=== PATIENT | female | born 1960 | race Caucasian/White ===

== ENCOUNTER 2018-01-28 14:04 | Inpatient (IN) | payer BC, OTHER ==
[2018-01-28] MEDS ORDERED: PIPERACILLIN/TAZOBACTAM 4.5 GM VIAL IV ONE (14:32)
[2018-01-28] MEDS ORDERED: VANCOMYCIN HCL INJ 1000 MG VIAL IV ONE (14:32)
[2018-01-28] MEDS ORDERED: NORMAL SALINE 1000 ML 1,000 ML IV ONE (14:32)
--- NOTE | 2018-01-28 14:35 | ER Document Report ---
ED Medical Screen (RME) - General Chief Complaint: Leg Swelling Stated Complaint: LEG SWELLING Time Seen by Provider: 01/28/18 14:31 Mode of Arrival: Ambulatory Information source: Patient Notes: Patient says she was bitten by an ant on Monday. Then on she started noticing redness on her right lower leg. The redness aspirated to her right upper leg below the knee. Patient is also says she has been having fever. She denies any history of diabetes. Leg is swollen and erythematous consistent with cellulitis. I have greeted and performed a rapid initial assessment of this patient. A comprehensive ED assessment and evaluation of the patient, analysis of test results and completion of the medical decision making process will be conducted by additional ED providers. TRAVEL OUTSIDE OF THE [place] IN LAST 30 DAYS: No - Related Data Allergies/Adverse Reactions: No Known Allergies Allergy (Unverified 07/08/11 21:17) Physical Exam - Vital signs Vitals: Temp Pulse Resp BP Pulse Ox 98.1 F 88 16 156/91 H 96 01/28/18 14:10 01/28/18 14:10 01/28/18 14:10 01/28/18 14:10 01/28/18 14:10 Course - Vital Signs Vital signs: Temp Pulse Resp BP Pulse Ox 98.1 F 88 16 156/91 H 96 01/28/18 14:10 01/28/18 14:10 01/28/18 14:10 01/28/18 14:10 01/28/18 14:10 Doctor's Discharge - Discharge Referrals: LOCAL,NO [Primary Care Provider] - Follow up as needed
[2018-01-28] MEDS ORDERED: PIPERACILLIN SODIUM/TAZOBACTAM 4.5 GM in NORMAL SALINE 100 ML IV ONE (15:15)
[2018-01-28 15:44] LABS: ABSOLUTE BASOPHILS # (AUTO) 0.1 10^3/uL (0.0-0.2); ABSOLUTE EOSINOPHILS # (AUTO) 0.2 10^3/uL (0.0-0.6); ABSOLUTE LYMPHOCYTES (AUTO) 2.6 10^3/uL (0.5-4.7); ABSOLUTE MONOCYTES (AUTO) 0.8 10^3/uL (0.1-1.4); ABSOLUTE NEUT (AUTO) 11.7 10^3/uL (1.7-8.2); BASOPHILS % (AUTO) 0.5 % (0-2); EOSINOPHILS % (AUTO) 1.4 % (0-6); HEMATOCRIT 43.3 % (36.0-47.0); HEMOGLOBIN 14.7 g/dL (12.0-15.5); LYMPHOCYTES % (AUTO) 16.7 % (13-45); MEAN CORPUSCULAR HEMOGLOBIN 28.5 pg (27.0-33.4); MEAN CORPUSCULAR HGB CONC 33.9 g/dL (32.0-36.0); MEAN CORPUSCULAR VOLUME 84 fl (80-97); MONOCYTES % (AUTO) 5.3 % (3-13); PLATELET COUNT 215 10^3/uL (150-450); RED BLOOD COUNT 5.14 10^6/uL (3.72-5.28); RED CELL DISTRIBUTION WIDTH 14.6 % (11.5-14.0); SEGMENTED NEUTROPHILS % (AUTO) 76.1 % (42-78); TOTAL CELLS COUNTED % (AUTO) 100 %; WHITE BLOOD COUNT 15.3 10^3/uL (4.0-10.5)
[2018-01-28 15:50] LABS: APPEARANCE,URINE SLIGHTLY-CLOUDY; BILIRUBIN,URINE NEGATIVE (NEGATIVE); COLOR,URINE YELLOW; GLUCOSE, URINE NEGATIVE (NEGATIVE); KETONES,URINE NEGATIVE (NEGATIVE); LEUKOCYTE ESTERASE,URINE LARGE (NEGATIVE); NITRITE,URINE POSITIVE (NEGATIVE); PROTEIN,URINE 30 mg/dL (NEGATIVE); URINE SPECIFIC GRAVITY 1.021
[2018-01-28 15:51] LABS: INTERNATIONAL RATION (INR) 1.07; PROTHROMBIN TIME 14.5 SEC (11.4-15.4)
[2018-01-28 16:02] LABS: ALANINE AMINOTRANSFERASE 20 U/L (9-52); ALBUMIN 4.4 g/dL (3.5-5.0); ALKALINE PHOSPHATASE 102 U/L (38-126); ANION GAP 8 (5-19); ASPARTATE AMINO TRANSFERASE 25 U/L (14-36); BILIRUBIN,DIRECT 0.7 mg/dL (0.0-0.4); BLOOD UREA NITROGEN 14 mg/dL (7-20); CALCIUM 10.2 mg/dL (8.4-10.2); CARBON DIOXIDE 33 mmol/L (22-30); CHLORIDE 98 mmol/L (98-107); GLUCOSE 143 mg/dL (75-110); POTASSIUM 3.7 mmol/L (3.6-5.0); SODIUM 139.2 mmol/L (137-145); TOTAL PROTEIN 9.4 g/dL (6.3-8.2)
--- NOTE | 2018-01-28 16:44 | RADIOLOGY REPORT (SQ) ---
EXAM DESCRIPTION: CHEST SINGLE VIEW COMPLETED DATE/TIME: 01/28/2018 4:29 pm REASON FOR STUDY: fever COMPARISON: None. EXAM PARAMETERS: NUMBER OF VIEWS: One view. TECHNIQUE: Single frontal radiographic view of the chest acquired. RADIATION DOSE: NA LIMITATIONS: None. FINDINGS: LUNGS AND PLEURA: No opacities, masses or pneumothorax. No pleural effusion. MEDIASTINUM AND HILAR STRUCTURES: No masses. Contour normal. HEART AND VASCULAR STRUCTURES: Heart normal in size. Normal vasculature. BONES: No acute findings. HARDWARE: None in the chest. OTHER: No other significant finding. IMPRESSION: NO ACUTE RADIOGRAPHIC FINDING IN THE CHEST. TECHNICAL DOCUMENTATION: JOB ID: [id number] [employer]- All Rights Reserved Reading location - IP/workstation name: [email or web address]
[2018-01-28] MEDS ORDERED: VANCOMYCIN HCL INJ 1000 MG VIAL ONE (22:37)
[2018-01-29 00:20] LABS: VENOUS BLOOD BASE EXCESS 0.6 mmol/L; VENOUS BLOOD HCO3 26.6 mmol/L (20-32); VENOUS BLOOD PCO2 47.7 mmHg (35-63); VENOUS BLOOD PH 7.36 (7.30-7.42)
[2018-01-29] MEDS ORDERED: PIPERACILLIN/TAZOBACTAM 3.375 GM VIAL IV ONE (00:52)
[2018-01-29] MEDS ORDERED: PIPERACILLIN SODIUM/TAZOBACTAM 3.375 GM in NORMAL SALINE 100 ML IV ONE (01:30)
--- NOTE | 2018-01-29 03:02 | ER Document Report ---
ED General - General Chief Complaint: Leg Swelling Stated Complaint: LEG SWELLING Time Seen by Provider: 01/28/18 14:31 Mode of Arrival: Ambulatory Notes: Patient is a pleasant 57-year-old female without history of diabetes who presents with severe leg swelling on the right leg with erythema. She says started several days ago however because of her canes been unable to make that hospital. Redness has not spread from the foot all the way up the leg to the knee. Is circumferential. No fevers. No vomiting. No chest pain or shortness of breath. She does not remember any actual lacerations to the leg. No other complaints at this time. TRAVEL OUTSIDE OF THE [place] IN LAST 30 DAYS: No - Related Data Allergies/Adverse Reactions: No Known Allergies Allergy (Unverified 07/08/11 21:17) Past Medical History - General Information source: Patient - Social History Smoking Status: Never Smoker Chew tobacco use (# tins/day): No Frequency of alcohol use: None Drug Abuse: None Family History: Reviewed & Not Pertinent Patient has suicidal ideation: No Patient has homicidal ideation: No Renal/ Medical History: Denies: Hx Peritoneal Dialysis Review of Systems - Review of Systems Notes: My Normal Review Basic REVIEW OF SYSTEMS: CONSTITUTIONAL : Denies fever, chills, or sweats. Denies recent illness. RESPIRATORY: Denies cough, cold, or chest congestion. Denies shortness of breath, difficulty breathing, or wheezing. GASTROINTESTINAL: Denies abdominal pain. Denies nausea, vomiting, or diarrhea. MUSCULOSKELETAL: Right lower extremity redness and swelling. SKIN: Denies rash or skin lesions. NEUROLOGICAL: Denies sensory or motor loss. ALL OTHER SYSTEMS REVIEWED AND NEGATIVE. Physical Exam - Vital signs Vitals: Temp Pulse Resp BP Pulse Ox 98.1 F 88 16 156/91 H 96 01/28/18 14:10 01/28/18 14:10 01/28/18 14:10 01/28/18 14:10 01/28/18 14:10 - Notes Notes: General Appearance: Well nourished, alert, cooperative, no acute distress, no obvious discomfort. Vitals: reviewed, See vital signs table. Eyes: PERRL, EOMI, Conjuctiva clear Lungs: No wheezing, No rales, No rhonci, No accessory muscle use, good air exchange bilaterally. Heart: Normal rate, Regular rythm, No murmur, no rub Abdomen: Normal BS, soft, No rigidity, No abdominal tenderness, No guarding, no rebound, no abdominal masses, no organomegaly Extremities: strength 5/5 in all extremities, good pulses in all extremities, swollen right lower extremity with deep erythema and warmth extends from foot to just below the knee. This has been outlined with a marking pen by the triage physician. No crepitance to palpation. Leg is actually mildly tender to palpation. Is not severely tender. Skin: warm, dry, appropriate color, no rash Neuro: speech clear, oriented x 3, normal affect, responds appropriately to questions. Course - Re-evaluation Re-evalutation: 01/29/18 09:[address] scan did not show any evidence of abscess. Patient's redness is actually starting streak up the inside of the right thigh consistent with lymphangitis. She has received Zosyn and vancomycin. I did speak with the hospitalist, Dr. Jeong, who agrees to admit the patient. Dictation of this chart was performed using voice recognition software; therefore, there may be some unintended grammatical errors. - Vital Signs Vital signs: Temp Pulse Resp BP Pulse Ox 99.4 F 83 16 150/83 H 98 01/29/18 02:21 01/29/18 08:00 01/29/18 08:00 01/29/18 02:21 01/29/18 08:00 - Laboratory Result Diagrams: 01/28/18 15:20 01/28/18 15:20 Laboratory results interpreted by me: 01/28/18 01/28/18 01/28/18 15:20 15:20 15:20 WBC 15.3 H RDW 14.6 H Absolute Neutrophils 11.7 H Carbon Dioxide 33 H Glucose 143 H Direct Bilirubin 0.7 H Total Protein 9.4 H Urine Protein 30 H Urine Blood SMALL H Urine Nitrite POSITIVE H Urine Urobilinogen 2.0 H Ur Leukocyte Esterase LARGE H Urine Ascorbic Acid 20 H Discharge - Discharge Clinical Impression: Cellulitis Qualifiers: Site of cellulitis: extremity Site of cellulitis of extremity: lower extremity Laterality: right Qualified Code(s): L03.115 - Cellulitis of right lower limb Condition: Good Disposition: ADMITTED INPATIENT Admitting Provider: Hospitalist Unit Admitted: Medical Floor
[2018-01-29] MEDS ORDERED: MAG HYDROX/AL HYDROX/SIMETH SUSP 30 ML UDCUP PO PRN (04:18)
[2018-01-29] MEDS ORDERED: IPRATROPIUM/ALBUTEROL 0.5-2.5 MG/3 ML AMPUL NEB PRN (04:18)
[2018-01-29] MEDS ORDERED: MAGNESIUM HYDROXIDE SUSP 30 ML UDCUP PO PRN (04:18)
[2018-01-29] MEDS ORDERED: NORMAL SALINE 1000 ML 1,000 ML IV SCH (04:30)
[2018-01-29] MEDS ORDERED: VANCOMYCIN HCL 0 MG in DEXTROSE 5%-WATER 250 ML IV NR (04:30)
--- NOTE | 2018-01-29 06:37 | PDOC H&P ---
History of Present Illness Admission Date/PCP: 01/29/18 03:14 Patient complains of: Left leg pain and swelling History of Present Illness: RODRICK BURGESS is a 57 year old female without significant past medical history who presents following 3 days of erythema and pain to her left leg. She admits fever chills intermittently improved with Tylenol. In the emergency room she is found to have marketed swelling, circumferential erythema and pain, leukocytosis and fever. She denies previous history, recent antibiotics, trauma or injury. She does have extensive hyperkeratotic lesions to the plantar surface of her feet with deep fissuring. She is started on empiric antibiotics and referred to the hospitalist for admission Past Medical History Medical History: None Skin Medical History: Reports: Other - Tinea pedis Past Surgical History Past Surgical History: Reports: None Social History Information Source: Patient Lives with: Spouse/Significant other Smoking Status: Never Smoker Frequency of Alcohol Use: None Drugs: None - Advance Directive Resuscitation Status: Full Code Family History Family History: None Parental Family History Reviewed: Yes Children Family History Reviewed: Yes Sibling(s) Family History Reviewed.: Yes Medication/Allergy Home Medications: No Home Medications 07/08/11 Allergies/Adverse Reactions: No Known Allergies Allergy (Unverified 07/08/11 21:17) Review of Systems Constitutional: ABSENT: chills, fever(s), headache(s), weight gain, weight loss Eyes: ABSENT: visual disturbances Ears: ABSENT: hearing changes Cardiovascular: ABSENT: chest pain, dyspnea on exertion, edema, orthropnea, palpitations Respiratory: ABSENT: cough, hemoptysis Gastrointestinal: ABSENT: abdominal pain, constipation, diarrhea, hematemesis, hematochezia, nausea, vomiting Genitourinary: ABSENT: dysuria, hematuria Musculoskeletal: ABSENT: joint swelling Integumentary: ABSENT: rash, wounds Neurological: ABSENT: abnormal gait, abnormal speech, confusion, dizziness, focal weakness, syncope Psychiatric: ABSENT: anxiety, depression, homidical ideation, suicidal ideation Endocrine: ABSENT: cold intolerance, heat intolerance, polydipsia, polyuria Hematologic/Lymphatic: ABSENT: easy bleeding, easy bruising Physical Exam Vital Signs: Temp Pulse Resp BP Pulse Ox 99.4 F 83 17 150/83 H 97 01/29/18 02:21 01/29/18 02:21 01/29/18 02:21 01/29/18 02:21 01/29/18 02:21 General appearance: PRESENT: cooperative, mild distress, well-developed, well- nourished Head exam: PRESENT: atraumatic, normocephalic Eye exam: PRESENT: conjunctiva pink, EOMI, PERRLA. ABSENT: scleral icterus Ear exam: PRESENT: normal external ear exam Mouth exam: PRESENT: moist, tongue midline Neck exam: ABSENT: carotid bruit, JVD, lymphadenopathy, thyromegaly Respiratory exam: PRESENT: clear to auscultation estelle. ABSENT: rales, rhonchi, wheezes Cardiovascular exam: PRESENT: RRR. ABSENT: diastolic murmur, rubs, systolic murmur Pulses: PRESENT: normal dorsalis pedis pul Vascular exam: PRESENT: normal capillary refill GI/Abdominal exam: PRESENT: normal bowel sounds, soft. ABSENT: distended, guarding, mass, organolmegaly, rebound, tenderness Rectal exam: PRESENT: deferred Extremities exam: PRESENT: full ROM, pedal edema, tenderness, +1 edema, other - Hyperkeratotic feet bilaterally with deep fissuring. ABSENT: calf tenderness, clubbing Neurological exam: PRESENT: alert, awake, oriented to person, oriented to place , oriented to time, oriented to situation, CN II-XII grossly intact. ABSENT: motor sensory deficit Psychiatric exam: PRESENT: appropriate affect, normal mood. ABSENT: homicidal ideation, suicidal ideation Skin exam: PRESENT: dry, intact, warm, other - Hyperkeratotic feet bilaterally with deep fissuring. ABSENT: cyanosis, rash Adult Front & Back Image: 1 - Circumferential erythema, hyperkeratotic feet bilaterally with deep fissuring Results Impressions: Chest X-Ray 01/28/18 14:33 IMPRESSION: NO ACUTE RADIOGRAPHIC FINDING IN THE CHEST. Assessment & Plan - Diagnosis (1) Left leg cellulitis Is this a current diagnosis for this admission?: Yes Plan: Complicated by tinea pedis, admit to medical floor, cellulitis care set, risk for MRSA empiric vancomycin and Zosyn. Follow-up CBC and blood culture (2) Tinea pedis Is this a current diagnosis for this admission?: Yes Plan: Source for #1, terbinafine ordered. Consider podiatry referral - Time Time Spent: 30 to 50 Minutes - Inpatient Certification Medical Necessity: Need Close Monitoring Due to Risk of Patient Decompensation
[2018-01-29] MEDS ORDERED: NORMAL SALINE 1000 ML 1,000 ML IV PRN (07:07)
[2018-01-29] MEDS: HEPARIN SOD (PORCINE) 5,000 UNIT/ML 1 ML SYRINGE SUBCUT SCH ×3 (07:08→21:44)
[2018-01-29] MEDS: ACETAMINOPHEN 325 MG TABLET PO PRN ×2 (07:08→21:52)
--- NOTE | 2018-01-29 07:47 | RADIOLOGY REPORT (SQ) ---
CT LOWER EXTREMITY WITH IV CONTRAST HISTORY: Right leg swelling and infection. COMPARISON: None. TECHNIQUE: CT scan of the right lower extremity. This exam was performed according to our departmental dose-optimization program, which includes automated exposure control, adjustment of the mA and/or kV according to patient size and/or use of iterative reconstruction technique. FINDINGS: No acute fracture or dislocation. Joint spaces are grossly preserved. Calcaneal spurring is present. Subcutaneous edema of the right lower extremity extending to the superficial fascia. Visualized muscles and tendons are grossly intact. No focal fluid collection is identified. No ankle joint effusion. No radiopaque foreign body. IMPRESSION: Diffuse subcutaneous edema of the right lower extremity which may represent cellulitis. No evidence of abscess or phlegmon. No acute osseous findings.
[2018-01-29] MEDS: PIPERACILLIN SODIUM/TAZOBACTAM 4.5 GM in NORMAL SALINE 100 ML IV SCH ×3 (09:37→22:26)
[2018-01-29] MEDS: TERBINAFINE HCL 250 MG TABLET PO SCH (10:29)
[2018-01-29] MEDS: DOCUSATE SODIUM 100 MG CAPSULE PO SCH ×2 (10:29→18:14)
[2018-01-29] MEDS: VANCOMYCIN HCL 750 MG in DEXTROSE 5%-WATER 250 ML IV SCH ×2 (10:33→22:27)
[2018-01-29] MEDS: HYDRALAZINE HCL INJ/PF 20 MG/1 ML SDV IV PRN (12:45)
--- NOTE | 2018-01-29 13:36 | RADIOLOGY REPORT (SQ) ---
EXAM DESCRIPTION: VENOUS UNILATERAL LOWER COMPLETED DATE/TIME: 01/29/2018 1:24 pm REASON FOR STUDY: Right leg swelling COMPARISON: None. TECHNIQUE: Dynamic and static tariq scale and color images acquired of the right leg venous system. S elected spectral images acquired with additional compression and augmentation maneuvers. The contrala teral common femoral vein and saphenofemoral junction were also imaged. Images stored on PACS. LIMITATIONS: None. FINDINGS: COMMON FEMORAL: Normal phasicity, compression and augmentation. No visualized echogenic ma terial on tariq scale. No defects on color images. FEMORAL: Normal compression and augmentation. No visualized echogenic material on tariq scale. No defe cts on color images. POPLITEAL: Normal compression, augmentation. No visualized echogenic material on tariq scale. No defec ts on color images. CALF VESSELS: Normal compression, augmentation. No visualized echogenic material on tariq scale. No de fects on color images. GSV and SSV: Normal compression, augmentation. No visualized echogenic material on tariq scale. No def ects on color images. ANY DEEP VENOUS INSUFFICIENCY: Not evaluated. ANY EVIDENCE OF POPLITEAL CYST: No. OTHER: No other significant finding. CONTRALATERAL COMMON FEMORAL VEIN AND SAPHENOFEMORAL JUNCTION: Normal phasicity, compression and augmentation. No visualized echogenic material on tariq scale. No de fects on color images. IMPRESSION: NO EVIDENCE OF DVT OR SVT IN THE RIGHT LEG. TECHNICAL DOCUMENTATION: JOB ID: [id number] [employer]- All Rights Reserved Reading location - IP/workstation name: [email or web address]
[2018-01-29] MEDS: KETOROLAC TROMETHAMINE INJ/PF 30 MG/1 ML SDV IV PRN (15:25)
[2018-01-29] MEDS ORDERED: DIPHENHYDRAMINE HCL 50 MG CAPSULE PO PRN (21:00)
[2018-01-30] MEDS: PIPERACILLIN SODIUM/TAZOBACTAM 4.5 GM in NORMAL SALINE 100 ML IV SCH ×5 (02:54→21:07)
[2018-01-30] MEDS: HEPARIN SOD (PORCINE) 5,000 UNIT/ML 1 ML SYRINGE SUBCUT SCH ×3 (06:06→21:44)
[2018-01-30 06:40] LABS: ABSOLUTE BASOPHILS # (AUTO) 0.1 10^3/uL (0.0-0.2); ABSOLUTE EOSINOPHILS # (AUTO) 0.3 10^3/uL (0.0-0.6); ABSOLUTE LYMPHOCYTES (AUTO) 2.6 10^3/uL (0.5-4.7); ABSOLUTE MONOCYTES (AUTO) 0.8 10^3/uL (0.1-1.4); ABSOLUTE NEUT (AUTO) 7.3 10^3/uL (1.7-8.2); BASOPHILS % (AUTO) 0.5 % (0-2); EOSINOPHILS % (AUTO) 2.9 % (0-6); HEMATOCRIT 37.6 % (36.0-47.0); HEMOGLOBIN 12.7 g/dL (12.0-15.5); LYMPHOCYTES % (AUTO) 23.8 % (13-45); MEAN CORPUSCULAR HEMOGLOBIN 28.1 pg (27.0-33.4); MEAN CORPUSCULAR HGB CONC 33.7 g/dL (32.0-36.0); MEAN CORPUSCULAR VOLUME 83 fl (80-97); MONOCYTES % (AUTO) 6.9 % (3-13); PLATELET COUNT 197 10^3/uL (150-450); RED BLOOD COUNT 4.51 10^6/uL (3.72-5.28); RED CELL DISTRIBUTION WIDTH 14.6 % (11.5-14.0); SEGMENTED NEUTROPHILS % (AUTO) 65.9 % (42-78); TOTAL CELLS COUNTED % (AUTO) 100 %; WHITE BLOOD COUNT 11.1 10^3/uL (4.0-10.5)
[2018-01-30 06:56] LABS: ANION GAP 8 (5-19); BLOOD UREA NITROGEN 11 mg/dL (7-20); CALCIUM 9.4 mg/dL (8.4-10.2); CARBON DIOXIDE 27 mmol/L (22-30); CHLORIDE 107 mmol/L (98-107); GLUCOSE 112 mg/dL (75-110); POTASSIUM 3.5 mmol/L (3.6-5.0); SODIUM 141.8 mmol/L (137-145)
[2018-01-30] MEDS: KETOROLAC TROMETHAMINE INJ/PF 30 MG/1 ML SDV IV PRN (09:59)
[2018-01-30] MEDS: TERBINAFINE HCL 250 MG TABLET PO SCH (09:59)
[2018-01-30] MEDS: DOCUSATE SODIUM 100 MG CAPSULE PO SCH ×2 (09:59→17:04)
[2018-01-30] MEDS: VANCOMYCIN HCL 750 MG in DEXTROSE 5%-WATER 250 ML IV SCH (10:00)
[2018-01-30] MEDS: CLINDAMYCIN 300 MG/D5W RTU 300 MG/50 ML RTUPB IV SCH ×3 (12:57→23:51)
--- NOTE | 2018-01-30 13:35 | PDOC PROGRESS REPORT ---
Subjective Progress Note for:: 01/30/18 Subjective:: Ms. Silva is a 57-year-old female with no significant past medical history aside from a history of diabetes who was admitted for right lower extremity cellulitis. Patient was started on vancomycin and Zosyn upon admission. At night, patient refused IV antibiotics because she said that it worsened her leg swelling and pain. She did not get IV antibiotics overnight. Upon encounter this morning, patient is comfortable. Her right leg swelling and erythema actually has slightly improved from yesterday based on the demarcations that were done upon admission. Patient still complains of pain. Explained in length that she needs to continue IV antibiotics for now. Patient was reassured and she finally agreed to be continued on IV antibiotics. No fever chills. Reason For Visit: LEG CELLULITIS, UTI, HTN Physical Exam Vital Signs: Temp Pulse Resp BP Pulse Ox 98.8 F 99 18 136/81 H 99 01/30/18 12:00 01/30/18 08:00 01/30/18 12:00 01/30/18 12:00 01/30/18 12:00 Intake & Output 01/29/18 01/30/18 01/31/18 06:59 06:59 06:59 Intake Total 450 100 Balance 450 100 Weight 161 lb 9.581 oz General appearance: PRESENT: no acute distress, well-developed, well-nourished Head exam: PRESENT: atraumatic, normocephalic Eye exam: PRESENT: conjunctiva pink, EOMI, PERRLA. ABSENT: scleral icterus Ear exam: PRESENT: normal external ear exam Mouth exam: PRESENT: moist, tongue midline Neck exam: ABSENT: carotid bruit, JVD, lymphadenopathy, thyromegaly Respiratory exam: PRESENT: clear to auscultation estelle. ABSENT: rales, rhonchi, wheezes Pulses: PRESENT: normal dorsalis pedis pul GI/Abdominal exam: PRESENT: normal bowel sounds, soft. ABSENT: distended, guarding, mass, organolmegaly, rebound, tenderness Rectal exam: PRESENT: deferred Extremities exam: PRESENT: other - Tender and erythematous right leg, and noted the medications/markings done upon presentation and erythema and swelling has not gone beyond the markings, the erythema has slightly improved from yesterday , full dorsalis pedis pulses Neurological exam: PRESENT: alert, awake, oriented to person, oriented to place , oriented to time, oriented to situation, CN II-XII grossly intact. ABSENT: motor sensory deficit Results Laboratory Results: 01/30/18 06:21 01/30/18 06:21 01/30/18 01/30/18 06:21 06:21 WBC 11.1 H RBC 4.51 Hgb 12.7 Hct 37.6 MCV 83 MCH 28.1 MCHC 33.7 RDW 14.6 H Plt Count 197 Seg Neutrophils % 65.9 Lymphocytes % 23.8 Monocytes % 6.9 Eosinophils % 2.9 Basophils % 0.5 Absolute Neutrophils 7.3 Absolute Lymphocytes 2.6 Absolute Monocytes 0.8 Absolute Eosinophils 0.3 Absolute Basophils 0.1 Sodium 141.8 Potassium 3.5 L Chloride 107 Carbon Dioxide 27 Anion Gap 8 BUN 11 Creatinine 0.51 L Est GFR ( Amer) > 60 Est GFR (Non-Af Amer) > 60 Glucose 112 H Calcium 9.4 Impressions: Chest X-Ray 01/28/18 14:33 IMPRESSION: NO ACUTE RADIOGRAPHIC FINDING IN THE CHEST. Lower Extremity CT 01/28/18 22:52 IMPRESSION: Diffuse subcutaneous edema of the right lower extremity which may represent cellulitis. No evidence of abscess or phlegmon. No acute osseous findings. Venous Doppler Study 01/29/18 00:00 IMPRESSION: NO EVIDENCE OF DVT OR SVT IN THE RIGHT LEG. Assessment & Plan - Diagnosis (1) Cellulitis Qualifiers: Site of cellulitis: extremity Site of cellulitis of extremity: lower extremity Laterality: right Qualified Code(s): L03.115 - Cellulitis of right lower limb Is this a current diagnosis for this admission?: Yes Plan: Right lower extremity cellulitis. Patient refused IV antibodies overnight. As mentioned, patient was reassured and agreed to be continued on IV antibiotics. We will switch IV vancomycin to clindamycin. Continue Zosyn for now as patient missed a few doses of antibiotics. Right lower extremity ultrasound is negative for DVT. CT of the leg done upon admission was also consistent with cellulitis. (2) Hypertension Is this a current diagnosis for this admission?: Yes Plan: Patient denies previous diagnosis of hypertension she has not been on antihypertensive before. Her pressures have been running in the 140-160 systolic with some fluctuations. Will continue to monitor blood pressures if she continues to be persistently hypertensive, will start amlodipine 5 mg daily. - Time Time Spent with patient: 15-24 minutes
[2018-01-30] MEDS: ACETAMINOPHEN 325 MG TABLET PO PRN ×2 (19:47→23:51)
[2018-01-31] MEDS: PIPERACILLIN SODIUM/TAZOBACTAM 4.5 GM in NORMAL SALINE 100 ML IV SCH ×3 (03:11→14:32)
[2018-01-31] MEDS: ACETAMINOPHEN 325 MG TABLET PO PRN ×3 (04:13→22:08)
[2018-01-31 06:33] LABS: ABSOLUTE EOSINOPHILS # (AUTO) 0.3 10^3/uL (0.0-0.6); ABSOLUTE LYMPHOCYTES (AUTO) 2.3 10^3/uL (0.5-4.7); ABSOLUTE MONOCYTES (AUTO) 0.6 10^3/uL (0.1-1.4); ABSOLUTE NEUT (AUTO) 6.1 10^3/uL (1.7-8.2); BASOPHILS % (AUTO) 0.4 % (0-2); EOSINOPHILS % (AUTO) 2.8 % (0-6); HEMATOCRIT 37.2 % (36.0-47.0); HEMOGLOBIN 12.6 g/dL (12.0-15.5); MEAN CORPUSCULAR HEMOGLOBIN 28.7 pg (27.0-33.4); MEAN CORPUSCULAR HGB CONC 33.8 g/dL (32.0-36.0); MEAN CORPUSCULAR VOLUME 85 fl (80-97); MONOCYTES % (AUTO) 6.5 % (3-13); PLATELET COUNT 199 10^3/uL (150-450); RED BLOOD COUNT 4.38 10^6/uL (3.72-5.28); RED CELL DISTRIBUTION WIDTH 14.4 % (11.5-14.0); SEGMENTED NEUTROPHILS % (AUTO) 65.3 % (42-78); TOTAL CELLS COUNTED % (AUTO) 100 %; WHITE BLOOD COUNT 9.4 10^3/uL (4.0-10.5)
[2018-01-31] MEDS ORDERED: CLINDAMYCIN 900 MG/D5W RTU 0 MG/0 ML RTUPB IV ONE (06:33)
[2018-01-31] MEDS: HEPARIN SOD (PORCINE) 5,000 UNIT/ML 1 ML SYRINGE SUBCUT SCH ×3 (06:48→22:09)
[2018-01-31 06:50] LABS: ANION GAP 9 (5-19); BLOOD UREA NITROGEN 10 mg/dL (7-20); CALCIUM 9.1 mg/dL (8.4-10.2); CARBON DIOXIDE 26 mmol/L (22-30); CHLORIDE 109 mmol/L (98-107); GLUCOSE 118 mg/dL (75-110); POTASSIUM 3.2 mmol/L (3.6-5.0); SODIUM 143.9 mmol/L (137-145)
[2018-01-31] MEDS ORDERED: CLINDAMYCIN PHOSPHATE INJ 300 MG/2 ML SDV ONE (06:57)
[2018-01-31] MEDS: CLINDAMYCIN 300 MG/D5W RTU 300 MG/50 ML RTUPB IV SCH ×3 (07:41→17:36)
[2018-01-31] MEDS: DOCUSATE SODIUM 100 MG CAPSULE PO SCH ×2 (09:25→17:47)
[2018-01-31] MEDS: TERBINAFINE HCL 250 MG TABLET PO SCH (09:25)
[2018-01-31] MEDS: HYDRALAZINE HCL INJ/PF 20 MG/1 ML SDV IV PRN (09:25)
[2018-01-31] MEDS: AMOXICILLIN TRIHYDRATE 500 MG CAPSULE PO SCH (18:31)
--- NOTE | 2018-01-31 19:45 | PDOC PROGRESS REPORT ---
Subjective Progress Note for:: 01/31/18 Subjective:: Ms. Silva is a 57-year-old female with no significant past medical history aside from a history of diabetes who was admitted for right lower extremity cellulitis. Patient was started on vancomycin and Zosyn upon admission. Today, the patient's peripheral IV was accidentally d/c'd. She refused to have another IV placed. She is asking for PO antibiotics. Will attempt p.o. amoxicillin. Patient was informed that if she develops a fever or if AM lab work is indicative of worsening infection, that she will require IV antibiotics. The patient is agreeable to these terms. Reason For Visit: LEG CELLULITIS, UTI, HTN Physical Exam Vital Signs: Temp Pulse Resp BP Pulse Ox 98.6 F 75 18 159/85 H 99 01/31/18 17:00 01/31/18 17:00 01/31/18 17:00 01/31/18 17:00 01/31/18 17:00 Intake & Output 01/30/18 01/31/18 02/01/18 06:59 06:59 06:59 Intake Total 450 550 57 Balance 450 550 57 Weight 73.3 kg 73.6 kg General appearance: PRESENT: no acute distress, well-developed, well-nourished Head exam: PRESENT: atraumatic, normocephalic Eye exam: PRESENT: conjunctiva pink, EOMI, PERRLA. ABSENT: scleral icterus Ear exam: PRESENT: normal external ear exam Mouth exam: PRESENT: moist, tongue midline Neck exam: ABSENT: carotid bruit, JVD, lymphadenopathy, thyromegaly Respiratory exam: PRESENT: clear to auscultation estelle. ABSENT: rales, rhonchi, wheezes Cardiovascular exam: PRESENT: RRR. ABSENT: diastolic murmur, rubs, systolic murmur Pulses: PRESENT: normal dorsalis pedis pul Vascular exam: PRESENT: normal capillary refill GI/Abdominal exam: PRESENT: normal bowel sounds, soft. ABSENT: distended, guarding, mass, organolmegaly, rebound, tenderness Rectal exam: PRESENT: deferred Extremities exam: PRESENT: full ROM, joint swelling, pedal edema, +2 edema - R FOOT. ABSENT: calf tenderness, clubbing Musculoskeletal exam: PRESENT: ambulatory, full ROM. ABSENT: normal inspection Neurological exam: PRESENT: alert, awake, oriented to person, oriented to place , oriented to time, oriented to situation Psychiatric exam: PRESENT: appropriate affect, normal mood. ABSENT: homicidal ideation, suicidal ideation Skin exam: PRESENT: dry, erythema, intact, warm, other - DEMARCATED ERYTHEMA TO RLE. CIRCUMFRENTIAL.. ABSENT: normal color Results Laboratory Results: 01/31/18 06:20 01/31/18 06:20 01/31/18 01/31/18 06:20 06:20 WBC 9.4 RBC 4.38 Hgb 12.6 Hct 37.2 MCV 85 MCH 28.7 MCHC 33.8 RDW 14.4 H Plt Count 199 Seg Neutrophils % 65.3 Lymphocytes % 25.0 Monocytes % 6.5 Eosinophils % 2.8 Basophils % 0.4 Absolute Neutrophils 6.1 Absolute Lymphocytes 2.3 Absolute Monocytes 0.6 Absolute Eosinophils 0.3 Absolute Basophils 0.0 Sodium 143.9 Potassium 3.2 L Chloride 109 H Carbon Dioxide 26 Anion Gap 9 BUN 10 Creatinine 0.64 Est GFR ( Amer) > 60 Est GFR (Non-Af Amer) > 60 Glucose 118 H Calcium 9.1 Impressions: Chest X-Ray 01/28/18 14:33 IMPRESSION: NO ACUTE RADIOGRAPHIC FINDING IN THE CHEST. Lower Extremity CT 01/28/18 22:52 IMPRESSION: Diffuse subcutaneous edema of the right lower extremity which may represent cellulitis. No evidence of abscess or phlegmon. No acute osseous findings. Venous Doppler Study 01/29/18 00:00 IMPRESSION: NO EVIDENCE OF DVT OR SVT IN THE RIGHT LEG. Status: Imported from PACS Assessment & Plan - Diagnosis (1) Cellulitis Qualifiers: Site of cellulitis: extremity Site of cellulitis of extremity: lower extremity Laterality: right Qualified Code(s): L03.115 - Cellulitis of right lower limb Is this a current diagnosis for this admission?: Yes Plan: Right lower extremity cellulitis. Patient refusing IV antibiotics. Plan to initiate PO amoxicillin Monitor closely for fever or signs of worsening infection (including worsening leukocytosis on labs) Right lower extremity ultrasound is negative for DVT. CT of the leg done upon admission was also consistent with cellulitis. (2) Hypertension Is this a current diagnosis for this admission?: Yes Plan: Patient denies previous diagnosis of hypertension she has not been on antihypertensive before. SBP have been running in the 140-160 systolic with some fluctuations. Initiated low dose metoprolol today PRN IV hydralazine and IV Lopressor for SBP>170 - Time Time Spent with patient: 15-24 minutes Medications reviewed and adjusted accordingly: Yes Anticipated discharge: Home Within: within 72 hours - Inpatient Certification Based on my medical assessment, after consideration of the patient's comorbidities, presenting symptoms, or acuity I expect that the services needed warrant INPATIENT care.: Yes I certify that my determination is in accordance with my understanding of Medicare's requirements for reasonable and necessary INPATIENT services [42 CFR 412.3e].: Yes Medical Necessity: Risk of Complication if Not Cared For in Hospital - Plan Summary Plan Summary: Attempt oral antibiotics since patient is currently refusing IV antibiotics. Follow-up on a.m. labs. Monitor for fever, tachycardia or other signs of infection.
[2018-02-01] MEDS: AMOXICILLIN TRIHYDRATE 500 MG CAPSULE PO SCH ×2 (05:07→13:19)
[2018-02-01 06:59] LABS: ABSOLUTE BASOPHILS # (AUTO) 0.1 10^3/uL (0.0-0.2); ABSOLUTE EOSINOPHILS # (AUTO) 0.3 10^3/uL (0.0-0.6); ABSOLUTE LYMPHOCYTES (AUTO) 2.5 10^3/uL (0.5-4.7); ABSOLUTE MONOCYTES (AUTO) 0.5 10^3/uL (0.1-1.4); BASOPHILS % (AUTO) 0.8 % (0-2); EOSINOPHILS % (AUTO) 3.3 % (0-6); HEMATOCRIT 39.4 % (36.0-47.0); HEMOGLOBIN 13.3 g/dL (12.0-15.5); LYMPHOCYTES % (AUTO) 26.4 % (13-45); MEAN CORPUSCULAR HEMOGLOBIN 28.7 pg (27.0-33.4); MEAN CORPUSCULAR HGB CONC 33.8 g/dL (32.0-36.0); MEAN CORPUSCULAR VOLUME 85 fl (80-97); MONOCYTES % (AUTO) 5.1 % (3-13); PLATELET COUNT 248 10^3/uL (150-450); RED BLOOD COUNT 4.63 10^6/uL (3.72-5.28); RED CELL DISTRIBUTION WIDTH 14.4 % (11.5-14.0); SEGMENTED NEUTROPHILS % (AUTO) 64.4 % (42-78); TOTAL CELLS COUNTED % (AUTO) 100 %; WHITE BLOOD COUNT 9.3 10^3/uL (4.0-10.5)
[2018-02-01 07:31] LABS: ANION GAP 10 (5-19); BLOOD UREA NITROGEN 10 mg/dL (7-20); CALCIUM 9.7 mg/dL (8.4-10.2); CARBON DIOXIDE 27 mmol/L (22-30); CHLORIDE 105 mmol/L (98-107); GLUCOSE 132 mg/dL (75-110); POTASSIUM 3.5 mmol/L (3.6-5.0); SODIUM 141.5 mmol/L (137-145)
[2018-02-01] MEDS: HEPARIN SOD (PORCINE) 5,000 UNIT/ML 1 ML SYRINGE SUBCUT SCH ×2 (08:28→13:18)
[2018-02-01] MEDS ORDERED: METOPROLOL SUCCINATE 25 MG TAB.SR.24H PO SCH (10:00)
[2018-02-01] MEDS: DOCUSATE SODIUM 100 MG CAPSULE PO SCH ×2 (10:12→17:11)
[2018-02-01] MEDS: TERBINAFINE HCL 250 MG TABLET PO SCH (10:12)
[2018-02-01 18:41] VITALS: BP 159/85
--- NOTE | 2018-02-19 05:40 | PDOC DISCHARGE SUMMARY ---
General - Admit/Disc Date/PCP Admission Date/Primary Care Provider: 01/29/18 03:14 Discharge Date: 02/01/18 - Discharge Diagnosis (1) Cellulitis Is this a current diagnosis for this admission?: Yes (2) Hypertension Is this a current diagnosis for this admission?: Yes - Additional Information Resuscitation Status: Full Code Discharge Diet: As Tolerated, Regular Discharge Activity: Activity As Tolerated, Balance Activity w/Rest, Keep Legs Elevated Prescriptions: Amoxicillin Trihydrate [Amoxil 500 mg Capsule] 500 mg PO Q8 #21 capsule Metoprolol Succinate [Toprol Xl 25 mg Tab.sr] 25 mg PO DAILY #30 tab.sr.24h Home Medications: Aspirin [Adult Low Dose Aspirin EC] 81 mg PO DAILY 01/29/18 Multivitamin [One-A-Day Essential] 1 each PO DAILY 01/29/18 Amoxicillin Trihydrate [Amoxil 500 mg Capsule] 500 mg PO Q8 #21 capsule Metoprolol Succinate [Toprol Xl 25 mg Tab.sr] 25 mg PO DAILY #30 tab.sr.24h History of Present Illness History of Present Illness: RODRICK BURGESS is a 57 year old female without significant past medical history who presents following 3 days of erythema and pain to her left leg. She admits fever chills intermittently improved with Tylenol. In the emergency room she is found to have marketed swelling, circumferential erythema and pain, leukocytosis and fever. She denies previous history, recent antibiotics, trauma or injury. She does have extensive hyperkeratotic lesions to the plantar surface of her feet with deep fissuring. She is started on empiric antibiotics and referred to the hospitalist for admission Hospital Course Hospital Course: Ms. Silva is a 57-year-old female with no significant past medical history aside from a history of diabetes who was admitted for right lower extremity cellulitis. Patient was started on vancomycin and Zosyn upon admission. Unfortunately, her peripheral IV stopped working while she was hospitalized. The patient refused to let nursing staff place another peripheral IV. The patient was started on PO amoxicillin and her cellulitis improved. Additionally , the patient was noted to be hypertensive during her hospital stay. She was started on a low dose beta girish and counseled on the importance of weight management and eating a healthy diet. After 3 days in the hospital, the patient was discharged home. Her cellulitis was improving and her blood pressure was controlled with medication. She was sent home with prescriptions for amoxicillin and metoprolol. For any further information regarding the patient's hospitalization, please refer to the EMR. Physical Exam Vital Signs: Temp Pulse Resp BP Pulse Ox 98.3 F 70 16 159/85 H 98 02/01/18 18:28 02/01/18 18:28 02/01/18 18:28 02/01/18 18:28 02/01/18 18:28 Results Laboratory Results: 02/01/18 06:46 02/01/18 06:46 Impressions: Chest X-Ray 01/28/18 14:33 IMPRESSION: NO ACUTE RADIOGRAPHIC FINDING IN THE CHEST. Lower Extremity CT 01/28/18 22:52 IMPRESSION: Diffuse subcutaneous edema of the right lower extremity which may represent cellulitis. No evidence of abscess or phlegmon. No acute osseous findings. Venous Doppler Study 01/29/18 00:00 IMPRESSION: NO EVIDENCE OF DVT OR SVT IN THE RIGHT LEG. Status: Imported from [facility] - * PATIENT BEING DISCHARGED WITH ANY OF THE FOLLOWING DIAGNOSIS: No Plan Discharge Plan: CONTINUE PO ANTIBIOTICS. TAKE BLOOD PRESSURE MEDICATION. FOLLOW UP WITH PRIMARY CARE DOCTOR WITHIN 1-2 WEEKS. Time Spent: Less than 30 Minutes
== END 2018-02-01 19:00 | disposition home or self-care (01) | DRG 603 ==
LOC: ER 14:04 → EH 01-29 03:14 → 2N 01-29 10:09
PROVIDERS: ADMIT Internal Medicine; ATTEND Internal Medicine
PROC: 3E0F73Z Introduction of Anti-inflammatory into Respiratory Tract, Via Natural or Artificial Opening (ICD-10-PCS; principal; 2018-01-29)
DX: L03.115 Cellulitis of right lower limb (principal); N39.0 Urinary tract infection, site not specified; I10 Essential (primary) hypertension; L85.9 Epidermal thickening, unspecified; B35.3 Tinea pedis; E11.9 Type 2 diabetes mellitus without complications; Z79.899 Other long term (current) drug therapy
CPT/HCPCS: 36415; 71045; 80048; 80053; 81001; 82803; 83605; 85025; 85610; 87040; 87086; 87088; 87186; 93971; 96361; 96365; 96367; 99285; J0360; J1644; J1885; J2543; J3370; J3490; J7060